=== PATIENT | female | born 1940 | race Caucasian/White ===

== ENCOUNTER 2018-07-19 17:00 | Emergency (ER) | payer OTHER ==
[~2018-07-19] VITALS: Ht 157.5 cm; Wt 64.4 kg
[~2018-07-19 17:00] MED LIST: BISOPROLOL-HCTZ1 TA1; CARDURA1 MG PO; NEURONTIN600 MG; NORVASC5 MG; PRILOSEC20 MG
[2018-07-19] MEDS ORDERED: COZAAR25 MG (17:34)
== END 2018-07-19 18:17 | disposition home or self-care (01) ==
LOC: ER 17:00
DX: M17.12 Unilateral primary osteoarthritis, left knee (principal); M25.562 Pain in left knee

== ENCOUNTER 2022-07-29 10:56 | Emergency (ER) | payer OTHER ==
[~2022-07-29] VITALS: Ht 157.5 cm; Wt 66.7 kg
[~2022-07-29 10:56] MED LIST changes: +COZAAR25 MG
[2022-07-29] MEDS ORDERED: SYNTHROID50 MCG PO (11:13)
[2022-07-29] MEDS ORDERED: ACID REDUCER20 M1 PO (11:14)
[2022-07-29] MEDS ORDERED: NEURONTIN600 M1 PO (11:15)
[2022-07-29] MEDS ORDERED: NAPROXEN500 MG PO (12:25)
[2022-07-29] MEDS ORDERED: ZANAFLEX4 MG PO (12:25)
== END 2022-07-29 13:03 | disposition home or self-care (01) ==
LOC: ER 10:56
DX: M54.50 Low back pain, unspecified (principal)

== ENCOUNTER → 2023-07-21 | Emergency (ER) | payer OTHER ==
[~2023-07-21] VITALS: Ht 152.4 cm; Wt 64.9 kg
[~2023-07-21] MED LIST changes: +ACID REDUCER20 M1 PO; +CLONAZEPAM1 MG PO; +DICLOFENAC SODI75 MG PO; +METAXALONE400 MG PO; +NAPROXEN500 MG PO; +NEURONTIN600 M1 PO; +PEPCID AC20 MG PO; +SYNTHROID50 MCG PO; +ZANAFLEX4 MG PO
[2023-07-21 17:26] LABS: URINE APPEARANCE Clear; URINE BILIRRUBIN Negative (NEGATIVE); URINE BLOOD Negative; URINE COLOR Yellow; URINE GLUCOSE Negative (NEGATIVE); URINE LEUKOCYTE Trace; URINE NITRATE Negative; URINE PROTEIN Trace (NEGATIVE); URINE UROBILINOGEN 0.2 E.U./dl
[2023-07-21 17:27] LABS: HEMATOCRIT 46.6 % (36.0-45.00); MEAN CELL VOLUME 89.5 fL (80.00-100.00); MEAN CORPUSCULAR HEMOGLOBIN 30.7 pg (27.00-32.0); MEAN CORPUSCULAR HGB CONC 34.3 g/dl (32.0-36.0); PLATELET COUNT 303 K/uL (150-450); RED CELL DISTRIBUTION WIDTH 14.8 % (11.5-14.5)
[2023-07-21 17:30] LABS: URINE BACTERIA 167.5 uL (0.0-1933); URINE EPITHELIAL CELLS 15.7 uL (0.0-38.8); URINE RBC 29.8 uL (0.0-20.8); URINE WBC 14.5 uL (0.0-23.2)
[2023-07-21 17:49] LABS: CALCIUM 10.7 mg/dL (8.5-10.1); CREATININE SERUM 0.86 mg/dL (0.55-1.02); GFR 63.33; POTASSIUM 3.6 mEq/L (3.5-5.1)
== END | disposition home or self-care (01) ==
LOC: ER 14:53
PROVIDERS: Nurse Practitioner Family
DX: M54.50 Low back pain, unspecified (principal); I10 Essential (primary) hypertension; E03.9 Hypothyroidism, unspecified
CPT/HCPCS: 36415; 96372; 99283; J1100; J2360

== ENCOUNTER 2023-09-07 17:19 | Emergency (ER) | payer OTHER ==
[~2023-09-07] VITALS: Ht 154.9 cm; Wt 64.4 kg
[2023-09-07] MEDS ORDERED: KETOROLAC TROMETHAMINE 60 MG VIAL IM STA (18:06)
[2023-09-07] MEDS ORDERED: OxyCODONE HCL/APAP UD (PERCOCET) PO STA (19:37)
== END 2023-09-07 20:45 | disposition home or self-care (01) ==
LOC: ER 17:20
DX: S52.591A Other fractures of lower end of right radius, initial encounter for closed fracture (principal); W18.39XA Other fall on same level, initial encounter; Y93.89 Activity, other specified; Y92.89 Other specified places as the place of occurrence of the external cause; M19.90 Unspecified osteoarthritis, unspecified site; E03.9 Hypothyroidism, unspecified; I10 Essential (primary) hypertension; E11.9 Type 2 diabetes mellitus without complications
CPT/HCPCS: 25605; 73110 ×2; 96372; 99283; J1885

== ENCOUNTER → 2023-09-09 | Emergency (ER) | payer OTHER ==
[~2023-09-09] VITALS: Ht 154.9 cm; Wt 63.5 kg
[~2023-09-09] MED LIST changes: +DEXAMETHASONE SODIUM PHOSPHATE 4 MG/ML VIAL IM ONE; +KETOROLAC TROMETHAMINE 60 MG VIAL IM ONE; +OxyCODONE HCL/APAP UD (PERCOCET) PO ONE
== END | disposition left against medical advice (07) ==
LOC: ER 13:22
DX: S52.591A Other fractures of lower end of right radius, initial encounter for closed fracture (principal); W19.XXXA Unspecified fall, initial encounter; Y93.89 Activity, other specified; Y92.89 Other specified places as the place of occurrence of the external cause; I10 Essential (primary) hypertension; M81.8 Other osteoporosis without current pathological fracture; M54.16 Radiculopathy, lumbar region; E03.9 Hypothyroidism, unspecified
CPT/HCPCS: 73090; 73110; 96372; 99283; J1100; J1885

== ENCOUNTER → 2023-09-17 | Day surgery (SDC) | payer OTHER ==
[2023-09-12 10:51] LABS: HEMATOCRIT 38.3 % (36.0-45.00); HEMOGLOBIN 13.2 g/dL (12.0-15.00); MEAN CELL VOLUME 90.5 fL (80.00-100.00); MEAN CORPUSCULAR HEMOGLOBIN 31.2 pg (27.00-32.0); MEAN CORPUSCULAR HGB CONC 34.4 g/dl (32.0-36.0); PLATELET COUNT 299 K/uL (150-450); RED BLOOD COUNT 4.24 M/uL (4.00-6.00); RED CELL DISTRIBUTION WIDTH 14.7 % (11.5-14.5)
[2023-09-12 11:06] LABS: INR 1.04; PARTIAL THROMBOPLASTIN TIME 30.4 SECONDS (22.0-34.0); PROTHROMBIN TIME 10.9 SECONDS (9.0-11.5)
[2023-09-12 11:16] LABS: ALBUMIN 3.8 gm/dL (3.4-5.0); BILIRUBIN TOTAL 0.57 mg/dL (0.3-1.2); CALCIUM 8.9 mg/dL (8.5-10.1); CREATININE SERUM 0.64 mg/dL (0.55-1.02); GFR 89.06; GLOBULINA 2.8 G/DL (2.4-3.5); POTASSIUM 3.7 mEq/L (3.5-5.1); TOTAL PROTEIN 6.6 gm/dL (6.4-8.2)
[2023-09-12 11:32] LABS: COL EPI 107 SECONDS (82-175)
[2023-09-12 12:04] LABS: PH,URINE 7.5 (5.0-8.0); URINE APPEARANCE Clear; URINE BILIRRUBIN Negative (NEGATIVE); URINE BLOOD Negative; URINE COLOR Yellow; URINE GLUCOSE Negative (NEGATIVE); URINE LEUKOCYTE Small; URINE NITRATE Negative; URINE PROTEIN Negative (NEGATIVE); URINE UROBILINOGEN 0.2 E.U./dl
[2023-09-12 12:05] LABS: URINE BACTERIA 57.9 uL (0.0-1933); URINE RBC 14.8 uL (0.0-20.8); URINE WBC 20.6 uL (0.0-23.2)
[~2023-09-17] VITALS: Ht 154.9 cm; Wt 63.5 kg
[~2023-09-17] MED LIST changes: +BUPIVACAINE HCL 30 ML VIAL IJ ONE; +BUPIVACAINE HCL/PF 0.5% 30ML ML ONE; +CEFAZOLIN SODIUM 1,000 MG VIAL IV ONE; +CEFAZOLIN SODIUM 1,000 MG VIAL ONE; -DEXAMETHASONE SODIUM PHOSPHATE 4 MG/ML VIAL IM ONE; +ISOPROPYL ALCOHOL 30 ML OUNCE TOP ONE; -KETOROLAC TROMETHAMINE 60 MG VIAL IM ONE; -OxyCODONE HCL/APAP UD (PERCOCET) PO ONE
== END | disposition home or self-care (01) ==
LOC: CIR.AMB 06:00
PROVIDERS: ATTEND Orthopaedic Surgery
DX: S52.571A Other intraarticular fracture of lower end of right radius, initial encounter for closed fracture (principal); I10 Essential (primary) hypertension; E03.9 Hypothyroidism, unspecified; Z20.822 Contact with and (suspected) exposure to COVID-19
CPT/HCPCS: 20902; 25280; 25609; L8699

== ENCOUNTER 2023-09-19 11:25 | Outpatient (CLI) | payer OTHER ==
[~2023-09-19 11:25] MED LIST changes: -BUPIVACAINE HCL 30 ML VIAL IJ ONE; -BUPIVACAINE HCL/PF 0.5% 30ML ML ONE; -CEFAZOLIN SODIUM 1,000 MG VIAL IV ONE; -CEFAZOLIN SODIUM 1,000 MG VIAL ONE; -ISOPROPYL ALCOHOL 30 ML OUNCE TOP ONE
== END 2023-09-19 11:28 | disposition home or self-care (01) ==
LOC: RAD 11:25
PROVIDERS: ATTEND Orthopaedic Surgery
DX: M54.50 Low back pain, unspecified (principal)